=== PATIENT | female | born 1985 | race African-American/Black ===

== ENCOUNTER 2018-07-22 12:34 | Inpatient (IN) ==
[2018-07-22] MEDS ORDERED: ONDANSETRON 4 MG/2 ML VIAL IV PRN (14:20)
[2018-07-22] MEDS ORDERED: CITRIC ACID/SODIUM CITRATE 30 ML UDCUP PO ONE (14:28)
[2018-07-22] MEDS ORDERED: diphenhydrAMINE 50 MG/1 ML VIAL IV PRN ×2 (14:28)
[2018-07-22] MEDS ORDERED: hydrOXYzine HCL 25 MG/1 ML VIAL IM PRN (14:28)
[2018-07-22] MEDS ORDERED: FAMOTIDINE 20 MG TABLET PO ONE (14:28)
[2018-07-22] MEDS ORDERED: PROMETHAZINE 25 MG/1 ML VIAL IM ONE (14:28)
[2018-07-22] MEDS ORDERED: NALOXONE 0.4 MG/ML VIAL IV PRN (14:28)
[2018-07-22] MEDS ORDERED: ONDANSETRON 4 MG/2 ML VIAL IV ONE (14:28)
[2018-07-22] MEDS ORDERED: ePHEDrine 50 MG/ML AMP IV PRN (14:28)
[2018-07-22] MEDS ORDERED: fentaNYL 2 MCG/ROPIV 0.2% EPID 100 ML EPIDURAL SCH (14:30)
[2018-07-22] MEDS ORDERED: AMPICILLIN 2,000 MG VIAL ONE ×2 (14:53→15:01)
[2018-07-22] MEDS ORDERED: SODIUM CHLORIDE 0.9% 0 ML IV ONE (14:54)
[2018-07-22] MEDS ORDERED: FAMOTIDINE 20 MG/2 ML VIAL IV ONE (14:56)
[2018-07-22] MEDS ORDERED: AMPICILLIN INJ 2,000 MG in SODIUM CHLORIDE 0.9% 100 ML IV ONE (14:57)
[2018-07-22] MEDS ORDERED: SODIUM CHLORIDE 0.9% 100 ML IV ONE (15:01)
[2018-07-22 15:05] LABS: Basophils % 0.1 % (0.0-0.8); Eosinophils % 0.2 % (0.00-10.9); Hematocrit 29.5 VOL% (35.7-47.0); Hemoglobin 9.3 GM/DL (12.0-16.0); Immature Granulocytes % 0.7 %; Immature Granulocytes Absolute 0.06 #; Lymphocytes # 1.3 10*3/uL (1.4-4.0); Lymphocytes % 16.6 % (21.3-54.2); Mean Corpuscular HGB Conc 31.5 GM/DL (32-36); Mean Corpuscular Hemoglobin 26 PG (27-34); Mean Corpuscular Volume 82.6 FL (87-102); Mean Platelet Volume 10.4 FL (9.6-12.0); Monocytes # 0.6 10*3/uL (0.11-0.8); Monocytes % 7.3 % (1.7-12.7); Neutrophils # 6.1 10*3/uL (1.4-7.4); Neutrophils % 75.1 % (38.7-73.9); Platelet Count 266 T/CUMM (130-400); Red Blood Count 3.57 MC/CUMM (3.8-5.5); Red Cell Distribution Width 14.2 % (9.3-17.3); White Blood Count 8.1 T/CUMM (4-12)
[2018-07-22] MEDS: LACTATED RINGERS 1,000 ML IV PRN ×2 (15:16→15:29)
[2018-07-22 15:17] LABS: Albumin 2.8 G/DL (3.4-5.0); Bilirubin,Total 0.5 MG/DL (0.2-1.0); Calcium 8.3 MG/DL (8.5-10.1); Potassium 3.7 MMOL/L (3.5-5.1); Total Protein 6.9 G/DL (6.4-8.3)
[2018-07-22 17:33] LABS: Apearance,Urine CLEAR (Clear); Bilirubin,Urine Negative (Negative); Blood, Urine Negative (Negative); Glucose,Urine (UA) Negative (Negative); Ketones,Urine 20 mg/dL (Negative); Nitrite,Urine Negative (Negative); Protein,Urine Negative; RBC,Urine 1 /HPF (0-4); Urine Color Straw (Yellow); Urine Specific Gravity 1.009 (1.001-1.035); Urine Urobilinogen < 2.0 EU/DL (0.2-1.0); WBC,Urine 1 /HPF (0-6)
[2018-07-22] MEDS: AMPICILLIN INJ 1,000 MG in SODIUM CHLORIDE 0.9% 100 ML IV SCH ×2 (18:29→23:15)
[2018-07-22] MEDS: LACTATED RINGERS 1,000 ML IV SCH (19:30)
[2018-07-23] MEDS: AMPICILLIN INJ 1,000 MG in SODIUM CHLORIDE 0.9% 100 ML IV SCH ×3 (03:15→10:41)
[2018-07-23] MEDS: MEPERIDINE 50 MG/1 ML VIAL IV PRN ×2 (04:24→09:46)
[2018-07-23] MEDS: LACTATED RINGERS 1,000 ML IV SCH (05:40)
[2018-07-23 12:16] VITALS: BP 98/47
== END 2018-07-23 13:23 | disposition home or self-care (01) | DRG 563 ==
LOC: N.LDOUT 12:34 → N.LD 12:35
PROVIDERS: ADMIT Obstetrics & Gynecology; ATTEND Obstetrics & Gynecology

== ENCOUNTER 2018-07-23 23:08 | Inpatient (IN) ==
[2018-07-23] MEDS ORDERED: PROMETHAZINE 25 MG/1 ML VIAL IM ONE (23:33)
[2018-07-23] MEDS ORDERED: BUTORPHANOL 2 MG/ML VIAL IM PRN (23:33)
== END 2018-07-24 10:25 | disposition home or self-care (01) | DRG 563 ==
LOC: N.LDOUT 23:08 → N.LD 23:10 → INTOOBSV 07-24 00:21
PROVIDERS: ADMIT Obstetrics & Gynecology; ATTEND Obstetrics & Gynecology

== ENCOUNTER 2018-07-29 21:05 | Inpatient (IN) ==
[2018-07-29] MEDS ORDERED: BUTORPHANOL 2 MG/ML VIAL IV PRN (21:15)
[2018-07-29] MEDS ORDERED: MEPERIDINE 50 MG/1 ML VIAL IV PRN (21:15)
[2018-07-29] MEDS ORDERED: ACETAMINOPHEN 325 MG TABLET PO PRN (21:15)
[2018-07-29] MEDS ORDERED: ONDANSETRON 4 MG/2 ML VIAL IV PRN (21:15)
[2018-07-29 21:32] LABS: Basophils % 0.1 % (0.0-0.8); Eosinophils # 0.1 10*3/uL (0.0-0.87); Eosinophils % 0.7 % (0.00-10.9); Hematocrit 28.6 VOL% (35.7-47.0); Immature Granulocytes % 0.7 %; Immature Granulocytes Absolute 0.05 #; Lymphocytes # 1.4 10*3/uL (1.4-4.0); Lymphocytes % 17.9 % (21.3-54.2); Mean Corpuscular HGB Conc 31.5 GM/DL (32-36); Mean Corpuscular Hemoglobin 26 PG (27-34); Mean Corpuscular Volume 82.4 FL (87-102); Mean Platelet Volume 10.5 FL (9.6-12.0); Monocytes # 0.5 10*3/uL (0.11-0.8); Neutrophils # 5.6 10*3/uL (1.4-7.4); Neutrophils % 73.6 % (38.7-73.9); Platelet Count 286 T/CUMM (130-400); Red Blood Count 3.47 MC/CUMM (3.8-5.5); Red Cell Distribution Width 14.6 % (9.3-17.3); White Blood Count 7.6 T/CUMM (4-12)
[2018-07-29] MEDS: LACTATED RINGERS 1,000 ML IV SCH (21:55)
[2018-07-29] MEDS: AMPICILLIN INJ 2,000 MG in SODIUM CHLORIDE 0.9% 100 ML IV SCH (22:05)
[2018-07-30] MEDS: AMPICILLIN INJ 2,000 MG in SODIUM CHLORIDE 0.9% 100 ML IV SCH ×2 (05:30→14:16)
[2018-07-30] MEDS: LACTATED RINGERS 1,000 ML IV SCH ×2 (05:37→14:17)
[2018-07-30] MEDS ORDERED: NALOXONE 0.4 MG/ML VIAL IV PRN (05:52)
[2018-07-30] MEDS ORDERED: PROMETHAZINE 25 MG/1 ML VIAL IM PRN (05:52)
[2018-07-30] MEDS ORDERED: hydrOXYzine HCL 25 MG/1 ML VIAL IM PRN (05:52)
[2018-07-30] MEDS ORDERED: diphenhydrAMINE 50 MG/1 ML VIAL IV PRN ×2 (05:52)
[2018-07-30] MEDS ORDERED: ePHEDrine 50 MG/ML AMP IV PRN (05:52)
[2018-07-30] MEDS ORDERED: FAMOTIDINE 20 MG/2 ML VIAL IV PRN (05:54)
[2018-07-30] MEDS ORDERED: CITRIC ACID/SODIUM CITRATE 30 ML UDCUP PO PRN (05:54)
[2018-07-30] MEDS: fentaNYL 2 MCG/ROPIV 0.2% EPID 100 ML EPIDURAL SCH ×2 (07:50→16:21)
[2018-07-30] MEDS: AMPICILLIN INJ 1,000 MG in SODIUM CHLORIDE 0.9% 100 ML IV SCH ×3 (10:15→18:09)
[2018-07-30 10:23] LABS: Apearance,Urine CLEAR (Clear); Bilirubin,Urine Negative (Negative); Blood, Urine Negative (Negative); Glucose,Urine (UA) Negative (Negative); Ketones,Urine Negative (Negative); Nitrite,Urine Negative (Negative); Protein,Urine Negative; RBC,Urine 1 /HPF (0-4); Urine Color Yellow (Yellow); Urine Specific Gravity 1.006 (1.001-1.035); Urine Urobilinogen < 2.0 EU/DL (0.2-1.0); WBC,Urine 12 /HPF (0-6)
[2018-07-30] MEDS ORDERED: LACTATED RINGERS 1,000 ML IV SCH (10:30)
[2018-07-30] MEDS ORDERED: OXYTOCIN/LR 20 UNIT/1,000 ML BAG IV ONE ×2 (11:09→11:44)
[2018-07-30] MEDS ORDERED: CARBOPROST TROMETHAMINE 250 MCG/ML AMP IM ONE (11:09)
[2018-07-30] MEDS ORDERED: METHYLERGONOVINE 0.2 MG/1 ML AMP ONE (11:11)
[2018-07-30] MEDS ORDERED: RHO(D) IMMUNE GLOBULIN 300 MCG SYRINGE IM ONE (11:44)
[2018-07-30] MEDS ORDERED: WITCH HAZEL PADS 100/JAR TOP PRN (11:44)
[2018-07-30] MEDS ORDERED: MEASLES/MUMPS/RUBELLA VACCINE 0.5 ML VIAL SUBCUT ONE (11:44)
[2018-07-30] MEDS ORDERED: LANOLIN 50% CREAM 0.3 OZ TUBE TOP PRN (11:44)
[2018-07-30] MEDS ORDERED: ONDANSETRON 4 MG/2 ML VIAL IV PRN (11:44)
[2018-07-30] MEDS ORDERED: ACETAMINOPHEN 325 MG TABLET PO PRN (11:44)
[2018-07-30] MEDS ORDERED: BENZOCAINE 20%/MENTHOL 0.5% SPRAY 56 GM CAN TOP PRN (11:44)
[2018-07-30] MEDS ORDERED: oxyCODONE/ACETAMINOPHEN 5-325 MG TABLET PO PRN ×2 (11:44)
[2018-07-30] MEDS ORDERED: HYDROCORTISONE 2.5% RECTAL CREAM 30 GM TUBE TOP PRN (11:44)
[2018-07-30] MEDS ORDERED: BISACODYL 10 MG SUPP RECTAL PRN (11:44)
[2018-07-30] MEDS ORDERED: DIPH/TET/ACEL PERT BOOSTER VACCINE 0.5 ML VIAL IM ONE (11:44)
[2018-07-30] MEDS: IBUPROFEN 800 MG TABLET PO PRN (16:18)
[2018-07-30] MEDS: DOCUSATE SODIUM 100 MG CAPSULE PO SCH (21:08)
[2018-07-31] MEDS: IBUPROFEN 800 MG TABLET PO PRN ×2 (00:58→11:05)
[2018-07-31 06:37] LABS: Basophils % 0.3 % (0.0-0.8); Eosinophils # 0.1 10*3/uL (0.0-0.87); Eosinophils % 0.9 % (0.00-10.9); Hematocrit 27.2 VOL% (35.7-47.0); Hemoglobin 8.5 GM/DL (12.0-16.0); Immature Granulocytes % 0.6 %; Immature Granulocytes Absolute 0.06 #; Lymphocytes # 1.8 10*3/uL (1.4-4.0); Lymphocytes % 17.2 % (21.3-54.2); Mean Corpuscular HGB Conc 31.3 GM/DL (32-36); Mean Corpuscular Hemoglobin 26 PG (27-34); Mean Corpuscular Volume 82.7 FL (87-102); Mean Platelet Volume 10.8 FL (9.6-12.0); Monocytes # 0.8 10*3/uL (0.11-0.8); Neutrophils # 7.5 10*3/uL (1.4-7.4); Platelet Count 266 T/CUMM (130-400); Red Blood Count 3.29 MC/CUMM (3.8-5.5); Red Cell Distribution Width 14.5 % (9.3-17.3); White Blood Count 10.3 T/CUMM (4-12)
[2018-07-31] MEDS: MULTIVITAMIN (PRENATAL) TABLET PO SCH (10:35)
[2018-07-31] MEDS: DOCUSATE SODIUM 100 MG CAPSULE PO SCH ×2 (12:26→20:38)
[2018-07-31] MEDS: FERROUS SULFATE 325 MG TABLET PO SCH ×2 (15:01→20:37)
[2018-08-01 08:03] VITALS: BP 111/62
[2018-08-01] MEDS: MULTIVITAMIN (PRENATAL) TABLET PO SCH (08:37)
[2018-08-01] MEDS: DOCUSATE SODIUM 100 MG CAPSULE PO SCH (08:38)
[2018-08-01] MEDS: FERROUS SULFATE 325 MG TABLET PO SCH (08:38)
[2018-08-01] MEDS ORDERED: MULTIVITAMIN (PRENATAL) TABLET PO SCH (09:00)
== END 2018-08-01 11:05 | disposition home or self-care (01) | DRG 560 ==
LOC: N.LDOUT 21:05 → N.LD 21:07 → N.OB 07-31 13:53
PROVIDERS: ADMIT Obstetrics & Gynecology; ATTEND Obstetrics & Gynecology